=== PATIENT | female | born 1970 | race Caucasian/White ===

== ENCOUNTER 2016-11-01 11:46 | Day surgery (SDC) | payer BC ==
[2016-10-27 15:17] LABS: HEMATOCRIT 36.2 % (36.0-48.0); HEMOGLOBIN 12.1 g/dL (12.0-16.0)
[2016-10-27 15:38] LABS: A/G RATIO 1.2 (0.7-1.9); ALBUMIN 3.6 G/DL (3.5-5.0); ALKALINE PHOSPHATASE 79 U/L (45-117); BUN (BLOOD UREA NITROGEN) 8 MG/DL (6-23); CALCIUM, SERUM 8.7 MG/DL (8.5-10.4); CHLORIDE, SERUM 109 MMOL/L (96-112); CO2 (CARBON DIOXIDE) 25 MMOL/L (24-34); CREATININE 1.01 MG/DL (0.55-1.02); GFR AFRICAN AMERICAN 77 ML/MIN (>=60); GFR NON AFRICAN AMERICAN 66 ML/MIN (>=60); GLUCOSE, SERUM 105 MG/DL (60-99); POTASSIUM, SERUM 3.9 MMOL/L (3.5-5.3); SGOT(AST) 9 U/L (5-40); SGPT(ALT) 20 U/L (5-65); SODIUM, SERUM 143 MMOL/L (135-148); TOTAL BILIRUBIN 0.3 MG/DL (0-1.2); TOTAL PROTEIN 6.6 G/DL (6.0-8.5)
--- NOTE | ~2016-11-01 | OP ---
Record Of Operation [facility] [address] [place]. [address] NAME: NGHIA MILLER : 68 STATUS : [facility]#: [id number] AGE: 46 ADM/REG DATE : 11/01/16 MR#: [id number] REPORT SERV DATE: 11/03/16 DICTATED BY: DERIAN SEQUEIRA DATE: 11/02/16 REPORT STATUS : Draft TRANSCRIBED BY: MODL DATE: 11/02/16 DATE OF PROCEDURE: 11/01/2016 PREOPERATIVE DIAGNOSIS: Incarcerated umbilical hernia. POSTOPERATIVE DIAGNOSIS: Incarcerated umbilical hernia. PROCEDURE: Reduction and mesh patch repair of incarcerated umbilical hernia. SURGEON: Derian Sequeira M.D. DESCRIPTION OF OPERATIVE PROCEDURE: The patient was brought to the operating suite, placed in supine position, underwent satisfactory general endotracheal anesthesia without incident. The skin of the abdomen was scrubbed, prepped, and draped in usual sterile fashion. 0.5% Marcaine with epinephrine was utilized as supplemental local anesthesia. Initially, a curvilinear infraumbilical incision was performed dissecting through the skin and subcutaneous tissue using the Bovie cautery and retractors. The umbilical skin was elevated off the umbilical defect which consisted of a preperitoneal protrusion of fat and hernia sac. The muscular aponeurotic fascia surrounding the umbilical defect was cleaned of overlying fibrofatty tissue and then the mesothelial hernia sac was excised. There was incarcerated omentum in the sac which was reduced into the peritoneal cavity. A PVPS bi-component mesh patch was chosen, was placed in local anesthesia, rolled up like a taco and then inserted into the peritoneal cavity. The two suturing tails of the mesh patch were withdrawn impacting it into the back of the midline fascia. Full-thickness U sutures of 0 Ethibond were placed full-thickness through the medial aspect of the rectus sheath and then taken intervening bite of the hernia patch in the peritoneal cavity. These were tied down securing the mesh medially and bilaterally. The suturing tails were trimmed, and in a "[id number]" interrupted vertical mattress fashion, three separate placed sutures of 0 Ethibond were used to draw the cephalad aspect of the midline fascia over the caudad aspect, incorporating the polypropylene suturing tails of the PVPS patch. Subcutaneous tissue was irrigated and closed with interrupted 3-0 Vicryl running subcuticular stitch, 4-0 Vicryl for the skin, Dermabond skin adhesive placed. The patient tolerated the procedure well, was returned to PACU in stable condition. At the termination procedure, sponge, needle, lap, and instrument counts were correct x3. ESTIMATED BLOOD LOSS: Less than 5 mL to 10 mL. Record Of Operation [address] [place]. [address] NAME: NGHIA MILLER : 68 STATUS : [facility]#: [id number] AGE: 46 ADM/REG DATE : 11/01/16 MR#: [id number] REPORT SERV DATE: 11/03/16 DICTATED BY: DERIAN SEQUEIRA DATE: 11/02/16 REPORT STATUS : Draft TRANSCRIBED BY: ANABELA DATE: 11/02/16 SHALOM/ANABELA Derian Sequeira M.D. / [id number] CC: Derian Sequeira M.D.
[~2016-11-01 11:46] MED LIST: DIOV80 PO; LOESTRIN1 TAB PO; NORV10 PO; PAX20 PO; PRILO PO; WELLXL150 PO; X5 PO
== END 2016-11-01 19:27 | disposition home or self-care (01) ==
LOC: SDC 11:46
PROVIDERS: Specialist
PROC: 0WUF0JZ Supplement Abdominal Wall with Synthetic Substitute, Open Approach (ICD-10-PCS; principal; 2016-11-01 13:45)
DX: K42.0 Umbilical hernia with obstruction, without gangrene (principal); F41.9 Anxiety disorder, unspecified; K21.9 Gastro-esophageal reflux disease without esophagitis; F32.9 Major depressive disorder, single episode, unspecified; E78.5 Hyperlipidemia, unspecified; E53.8 Deficiency of other specified B group vitamins; E55.9 Vitamin D deficiency, unspecified; E66.01 Morbid (severe) obesity due to excess calories; I10 Essential (primary) hypertension; Z90.49 Acquired absence of other specified parts of digestive tract; Z87.891 Personal history of nicotine dependence; Z79.899 Other long term (current) drug therapy; Z68.43 Body mass index [BMI] 50.0-59.9, adult; Z98.890 Other specified postprocedural states
CPT/HCPCS: 80053; 84703; 85014; 85018; 87641; 93005; A9270-GY; C1781; J0330; J0690; J2250; J2270; J2405; J2710; J3010